=== PATIENT | female | born 1995 ===

== ENCOUNTER 2023-01-21 14:27 | Emergency (ER) | payer MEDICARE, MEDICAID, SELFPAY ==
[2023-01-21 14:31] VITALS: BP 106/80; PULSE 114; RESP 18; TEMP 36.8; O2SAT 97
--- NOTE | 2023-01-21 15:30 | DI.RAD_ITS ---
Exam(s) XR CHEST 2V PA LATERAL EXAM: XR CHEST 2V PA LATERAL CLINICAL HISTORY: cough 1-2 weeks, rales L>R TECHNIQUE: 2D digital imaging was performed of the chest. Two images were obtained. PA and lateral views were obtained. COMPARISON: No exams were available for comparison FINDINGS: MEDIASTINUM: Normal. HEART: Normal. PULMONARY VASCULATURE: Normal. LUNGS: Clear. PLEURAL SPACE: No pleural effusion or pneumothorax. BONE:Within normal limits for the patient's age. OTHER FINDINGS:Normal. IMPRESSION: No acute pulmonary findings. DATA REPOSITORY: RADIATION DOSE DELIVERED:
--- NOTE | 2023-01-21 15:34 | ED.GENADUL_ITS ---
Discharge Plan Disposition Patient Disposition: Against Medical Advice Discharge Details Clinical Impression: Cough, Tachycardia Primary Care Provider: Unknown,Unknown ED Provider: Eben Lin Home Meds and New Rx's Prescriptions: New benzonatate 100 mg capsule 100 mg PO BID PRN (Reason: cough) Qty: 14 0RF Discharge Instructions Instructions: Against Medical Advice (ED) Additional Instructions: You are leaving AGAINST MEDICAL ADVICE and may have lifestyle modifying or life- threatening disease that would go undiagnosed and untreated. It was recommended that you stay in the emergency dept for further observation and treatment and you have refused this. You understand you may return to the ER at any point for further work-up and treatment as recommended. Please follow-up with your doctor. Please return to the ER at any time for worsening or new concerning symptoms or if you wish to pursue work-up and treatment as recommended. Medical Decision Making 1536?- 27-year-old here with cough, sore throat, myalgias, headache over the past 1 to 2 weeks. Patient is saturating well in no respiratory distress. They are tachycardic and appears dehydrated. Suspect viral illness. Consider pneumonia. Plan to obtain chest x-ray. Consider COVID and influenza and will obtain stat testing. Plan to give IV fluid bolus. I will check screening labs including CBC and complete metabolic panel. -- Labs reviewed and no leukocytosis. No significant electrolyte abnormalities. Chest x-ray was reviewed and interpreted by radiology: No acute findings. Patient reassessed and tachycardia persisting. Plan for additional IV fluid bolus and continued monitoring. Plan discussed with patient and they are refusing and would like to leave at this time AGAINST MEDICAL ADVICE. I had a discussion with the patient about my diagnostic/treatment plan. Patient declines plan and wishes to leave against medical advise. I reiterated my concerns to the patient and explained the risks of leaving prior to completion of workup and treatment. I specifically emphasized the possibility of life- threatening or lifestyle modifying disease that would not be appropriately treated if they leave. Patient verbalized understanding of my concerns and the potential for life threatening or lifestyle modifying disease. Patient has capacity to make informed decision. I again explained my concerns and urged the patient to stay for treatment as outlined. Patient continued to refuse. I then discussed potential less ideal alternatives to diagnostic/treatment plan as outlines and patient refused. I recommended that the patient follow-up with primary care physician PEDRITO or return to the Emergency Department at any time for further treatment. HPI General Mode of arrival: ambulatory . Date/Time Provider Initiated Documentation: 01/21/23 15:19 . Limitations to Documentation: no limitations . Information obtained by: patient . HPI Narrative: 27-year-old smoker presents with chief complaint of respiratory illness. Patient notes cough for the past 1 to 2 weeks. Patient has associated sore throat, myalgias and headache. Patient denies fever but notes they typically are not able to tell when they have a fever. No associated abdominal pain. No rash. Patient notes negative home COVID test. Related Data Home Medications Medication Instructions Recorded Confirmed benzonatate 100 mg capsule 100 mg PO BID PRN cough #14 caps 01/21/23 Previous Rx's Medication Instructions Recorded benzonatate 100 mg capsule 100 mg PO BID PRN cough #14 caps 01/21/23 Allergies Allergy/AdvReac Type Severity Reaction Status Date / Time acetaminophen [From Tylenol] AdvReac Unverified 01/21/23 14:37 ibuprofen AdvReac Unverified 01/21/23 14:37 quetiapine [From Seroquel] AdvReac Unverified 01/21/23 14:37 General Stated Complaint: GenMedical LEI: 4 Review of Systems All systems reviewed & are unremarkable except as noted in HPI and below Constitutional Constitutional: Reports as per HPI and Reports body ache(s) Respiratory Respiratory: Reports cough and Denies hemoptysis PFSH All Active Problems (Updated 01/21/23 @ 17:27 by Eben Lin MD) Cough (Acute) Tachycardia (Acute) Social History Smoking risk assessment performed?: No Exam Const General: cooperative and no acute distress HENIN Mouth: moist mucous membranes Throat: tonsils normal, uvula midline, postnasal drainage, no uvular edema and other (Mild erythema) Eyes Conjunctivae: normal conjunctivae Sclera: normal sclerae Neck Neck: trachea midline and supple Resp Effort & Inspection: normal respiratory effort and able to speak in complete sentences Auscultation: rales bilaterally, no rhonchi and no wheezes Cardio Rate: tachycardic Rhythm: regular rhythm GI Palpation: soft, not firm, no guarding, no masses, not rigid and nontender Skin General skin exam: no rashes or lesions noted Neuro General: patient alert, patient awake, patient oriented x3 and tone normal Extrem General: no edema Psych Appearance: grossly normal Mental Status: mental status grossly normal Speech and Movement: speech and movement normal Affect: blunted Course Vital Signs Vital signs: Vital Signs Temperature 36.8 C 01/21/23 14:31 Pulse 114 H 01/21/23 14:31 Respiratory Rate 18 01/21/23 14:31 Blood Pressure 106/80 01/21/23 14:31 Pulse Oximetry 97 01/21/23 14:31 Temperature 36.8 C 01/21/23 14:31 Pulse 114 H 01/21/23 14:31 Respiratory Rate 18 01/21/23 14:31 Blood Pressure 106/80 01/21/23 14:31 Blood Pressure Position Sitting 01/21/23 14:31 Pulse Oximetry 97 01/21/23 14:31 Oxygen Delivery Method Room Air 01/21/23 14:31 Oxygen Flow Rate 0 01/21/23 14:31 Pain Level 7 01/21/23 14:31 Comment chronic pain 01/21/23 14:31 Lab/Test Results Lab/Test Results: 01/21/23 15:10 Tonsil - Right Group A Streptococcus Culture - Pending
[2023-01-21] MEDS: Lactated Ringers 1,000 ML 1000 ML IV (15:59)
[2023-01-21 16:04] LABS: Abs Immature Grans 0.41 10^3/uL (0.0-0.06); Absolute Basophil Count 0.14 10^3/uL (0.0-0.2); Absolute Eosinophil Count 0.87 10^3/uL (0.0-0.7); Absolute Lymphocyte Count 3.05 10^3/uL (1.2-3.4); Absolute Monocyte Count 0.65 10^3/uL (0.1-0.8); Absolute Neutrophil Count 5.21 10^3/uL (1.2-6.7); Basophils % 1.4; Eosinophils % 8.4; HCT 38.1 % (36.0-46.0); HGB 13.2 g/dL (11.2-15.7); Lymphocytes % 29.5; MCH 33.1 pg (27.0-33.0); MCHC 34.6 % (32.0-36.0); MCV 96 fL (80-95); MPV 8.5 fL (8.0-11.0); Monocytes % 6.3; Neutrophils % 50.4; Platelet Count 363 10^3/uL (130-400); RBC 3.99 10^6/uL (3.93-5.22); RDW 13.1 % (11.7-14.6); RDW-SD 46.2 fL; WBC 10.33 10^3/uL (4.4-10.8)
[2023-01-21 16:26] LABS: COVID-19 PCR Negative (Negative); Influenza A PCR Negative (Negative); Influenza B PCR Negative (Negative); RSV PCR Negative (Negative)
[2023-01-21 16:28] LABS: ALT 14 U/L (14-59); AST 8 U/L (15-37); Albumin 3.6 g/dL (3.4-5.0); Alkaline Phosphatase 97 U/L (46-116); Anion Gap 9.9 mmol/L (3-11); BUN 8 mg/dL (7-18); Bilirubin, Total 0.3 mg/dL (0.2-1.0); CO2 23.1 mmol/L (21.0-32.0); CREATININE 0.9 mg/dL (0.55-1.02); Calcium 8.7 mg/dL (8.5-10.1); Chloride 110 mmol/L (98-107); Estimated GFR 88.75 (mL/min/1.73m2); Glucose 149 mg/dL (74-106); Potassium 4.1 mmol/L (3.5-5.1); Sodium 143 mmol/L (136-145); Total Protein 7.6 g/dL (6.4-8.2)
[2023-01-21 16:31] LABS: Source Nasopharynx
[2023-01-21 17:15] VITALS: BP 122/77; PULSE 121; RESP 18; TEMP 37.2; O2SAT 96
--- NOTE | 2023-01-21 17:15 | DI.VRAD_ITS ---
PROCEDURE INFORMATION: Exam: XR Chest Exam date and time: 01/21/2023 4:56 PM Age: 27 years old Clinical indication: Cough and other: Cough1-2 weeks TECHNIQUE: Imaging protocol: Radiologic exam of the chest. Views: 2 views. COMPARISON: No relevant prior studies available. FINDINGS: Lungs: No consolidation. Pleural spaces: No pleural effusion. No pneumothorax. Heart/Mediastinum: No cardiomegaly. Bones/joints: Unremarkable. IMPRESSION: No acute findings. Dictated and Authenticated by: Lin Raines MD. Ordering:GRACE Treadwell MD
[2023-01-21 17:36] VITALS: RESP 20
== END 2023-01-21 20:45 | disposition left against medical advice (07) ==
PROVIDERS: Emergency Provider Student in an Organized Health Care Education/Training Program
DX: R05.9 Cough, unspecified (principal); R00.0 Tachycardia, unspecified; R51.9 Headache, unspecified; M79.10 Myalgia, unspecified site; Z20.822 Contact with and (suspected) exposure to COVID-19
CPT/HCPCS: 36415; 80053; 87637; 87880; 96360; 99284; 71046; 85025; 87081

== ENCOUNTER 2023-04-17 20:10 | Emergency (ER) | payer MEDICARE, MEDICAID, SELFPAY ==
[2023-04-17 20:04] VITALS: BP 112/70; PULSE 90; RESP 16; TEMP 36.8; O2SAT 98
--- NOTE | 2023-04-17 20:30 | DI.CT_ITS ---
Exam(s) CT THORACIC LUMBAR SPINE WO EXAM: CT THORACIC LUMBAR SPINE WO CLINICAL HISTORY: Back Pain. TECHNIQUE: Imaging Protocol: Axial computed tomography images with coronal and sagittal reformatted images were created and reviewed. CONTRAST MATERIAL: Intravenous: Omnipaque 350 Contrast volume:structured data in ml Contrast route:I V - Oral: yes / no COMPARISON: No exams were available for comparison FINDINGS: THORACIC SPINAL COLUMN: No evidence of fracture or listhesis. No facet malalignment. No acute compr omise of the spinal canal. LUMBOSACRAL SPINAL COLUMN: No evidence of fracture or listhesis nor disc space narrowing. No facet a rthropathy. No facet malalignment. No osseous lesions. No acute compromise of the spinal canal. IMPRESSION: No significant osseous findings in the thoracic and lumbosacral spinal columns. RADIATION DOSE DELIVERED: 1,629.69mGy.cm Total DLP DATA REPOSITORY: All CT scans at this facility are submitted to the National Radiology Data Registry (NRDR) Dose Index Registry (DIR) with the [employer] (A[employer]). RADIATION OPTIMIZATION: All CT scans at this facility use at least one of these dose optimization te chniques: automated exposure control; mA and/or kV adjustment per patient size (includes targeted exa ms where dose is matched to clinical indication); or iterative reconstruction.
--- NOTE | 2023-04-17 20:37 | ED.GENADUL_ITS ---
Discharge Plan Disposition Patient Disposition: Home Condition: Stable Discharge Details Clinical Impression: Back pain with left-sided sciatica ED Provider: Leslee Arora Home Meds and New Rx's Prescriptions: Continued benzonatate 100 mg capsule 100 mg PO BID PRN (Reason: cough) Qty: 14 0RF cetirizine 10 mg Tablet 10 mg PO DAILY alprazolam [Xanax] 0.5 mg Tablet 0.5 mg PO QID escitalopram oxalate 20 mg Tablet 20 mg PO DAILY olanzapine 2.5 mg Tablet 2.5 mg PO DAILY trazodone 150 mg Tablet 150 mg PO .QHS prazosin 2 mg Capsule 6 mg PO .QHS duloxetine 20 mg Capsule,Delayed Release(Dr/Ec) 20 mg PO DAILY Vyvanse 30 mg Capsule 30 mg PO DAILY docusate sodium [Stool Softener] 100 mg Capsule 100 mg PO BID pramipexole 0.25 mg Tablet 0.25 mg PO QHS diclofenac sodium 75 mg Tablet,Delayed Release (Dr/Ec) 75 mg PO BID lithium carbonate 300 mg Tablet 300 mg PO BID Discharge Instructions Instructions: Sciatica (ED), Lower Back Exercises (ED) Additional Instructions: CT is within normal limits. You may use lidocaine patches which you can obtain [id number] if needed. You did refuse the stronger pain medication tramadol. You may also apply topical diclofenac sodium or take diclofenac as this is on your medication list. Follow up with primary care provider in 3-5 days. Return to ED sooner if any worsening loss of bowel or bladder control, or concerns. Increase oral fluids. Stand Alone Forms: Physical Therapy Referral Discharge Data Discharge Date/Time-TO BE ENTERED AT DEPARTURE: 04/17/23 23:06 Medical Decision Making 27-year-old female who identifies as a male presents to the ER via EMS with a chief complaint of back pain which began suddenly prior to arrival while changing patient's close. Patient states that she was putting on her pants when she had a sudden onset of acute pain which radiates down into her thigh. Denies any recent trauma or injuries. Denies any loss of bowel or bladder control no saddle anesthesia. Reports cannot walk because it hurts. Leg raise positive. Does have sensation intact and gross motor intact, did not take any medications prior to arrival. CT T and L spine ordered, Lidocaine patch and flexeril ordered. Patient denies chance of . Informed by RN that patient is laying in bed on phone with legs crossed has no problems moving her legs. CT shows within normal limits T and L-spine no foraminal narrowing or spinal stenosis. However there is small questionable bilateral pleural effusions which could be causing patient's pain. I will discuss that or patient has any cough or shortness of breath which she did not mention to me earlier. Denies any cough or shortness of breath, lungs are clear to auscultation bilaterally. She is able to roll over onto her side without difficulty. Patient reports the pain is still moderate. She is unable to take Tylenol or ibuprofen but does have diclofenac on her list and trazodone. I will order tramadol for pain relief and instructed follow-up with PCP. We will road test her prior to discharge. Patient is refusing Tramadol. Patient discharged with physical therapy referral and instructions to follow-up with PCP. Patient was seen ambulatory without assistance upon discharge. This text was generated using [employer] dictation system, please disregard any oddities of phrase or misspellings. Imaging Data Radiologic Study: Imaging: CT Scan Radiologist's impression: IMPRESSION: 1. Thoracic spine is unremarkable. Minimal degenerative features of the disc spaces. No acute changes. No spinal stenosis or foraminal stenosis. 2. Paravertebral soft tissues are unremarkable. 3. Visible portions of the lung mack are clear. 4. Small bilateral pleural effusions. Recommend clinical correlation. This might be a source of thoracic pain if there is clinical pleurisy Soft tissues: Unremarkable. IMPRESSION: 1. No acute findings. 2. No migue degenerative features. No spinal stenosis or foraminal stenosis. 3. Transitional lumbar vertebra. There are 4 non rib-bearing lumbar vertebral bodies. Thank you for allowing us to participate in the care of your patient. Dictated and Authenticated by: Ronnie Hill MD HPI General Mode of arrival: EMS . Date/Time Provider Initiated Documentation: 04/17/23 20:34 . Limitations to Documentation: no limitations . Information obtained by: patient, RN notes reviewed and old records reviewed . HPI Narrative: 27-year-old female who identifies as a male presents to the ER via EMS with a chief complaint of back pain which began suddenly prior to arrival while changing patient's clothes. Patient states that she was putting on her pants when she had a sudden onset of acute pain which radiates down into her thigh. Denies any recent trauma or injuries. Denies any loss of bowel or bladder control no saddle anesthesia. Reports cannot walk because it hurts. Leg raise positive. Does have sensation intact and gross motor intact, did not take any medications prior to arrival. Related Data Home Medications Medication Instructions Recorded Confirmed benzonatate 100 mg capsule 100 mg PO BID PRN cough #14 caps 01/21/23 04/17/23 alprazolam 0.5 mg tablet (Xanax) 0.5 mg PO QID 04/17/23 04/17/23 cetirizine 10 mg tablet 10 mg PO DAILY 04/17/23 04/17/23 diclofenac sodium 75 mg 75 mg PO BID 04/17/23 04/17/23 tablet,delayed release docusate sodium 100 mg capsule 100 mg PO BID 04/17/23 04/17/23 (Stool Softener) duloxetine 20 mg capsule,delayed 20 mg PO DAILY 04/17/23 04/17/23 release escitalopram oxalate 20 mg tablet 20 mg PO DAILY 04/17/23 04/17/23 lisdexamfetamine 30 mg capsule 30 mg PO DAILY 04/17/23 04/17/23 (Vyvanse) lithium carbonate 300 mg tablet 300 mg PO BID 04/17/23 04/17/23 olanzapine 2.5 mg tablet 2.5 mg PO DAILY 04/17/23 04/17/23 pramipexole 0.25 mg tablet 0.25 mg PO QHS 04/17/23 04/17/23 prazosin 2 mg capsule 6 mg PO .QHS 04/17/23 04/17/23 trazodone 150 mg tablet 150 mg PO .QHS 04/17/23 04/17/23 Previous Rx's Medication Instructions Recorded benzonatate 100 mg capsule 100 mg PO BID PRN cough #14 caps 01/21/23 Allergies Allergy/AdvReac Type Severity Reaction Status Date / Time acetaminophen [From Tylenol] AdvReac Unverified 04/17/23 20:08 ibuprofen AdvReac Unverified 04/17/23 20:08 quetiapine [From Seroquel] AdvReac Unverified 04/17/23 20:08 General Stated Complaint: Nk/Back Pain LEI: 3 Review of Systems All systems reviewed & are unremarkable except as noted in HPI and below Constitutional Constitutional: Reports weakness Cardiovascular Cardiovascular: Denies dyspnea Respiratory Respiratory: Denies cough and Denies dyspnea Gastrointestinal Gastrointestinal: Denies fecal incontinence Genitourinary Genitourinary: Denies urinary incontinence Musculoskeletal Musculoskeletal: Reports as per HPI, Reports back pain and Reports radiating pain into limb Neurologic Neurologic: Reports as per HPI and Reports weakness PFSH All Active Problems (Updated 04/17/23 @ 22:40 by Leslee Arora NP) Back pain with left-sided sciatica (Acute) Social History Smoking/Tobacco Use Status: Never Smoking risk assessment performed?: Yes Alcohol Intake: current Alcohol Intake frequency: holidays/special occasions only Drug use: Never Substance use type: does not use Do you feel safe at home: Yes Do you feel safe in your relationship?: Yes Exam Narrative Exam Narrative: Constitutional: Alert and oriented x3. Appears stated age. Normal body habitus. Head: Normocephalic, no trauma. Eyes: Pupils PERRL, Red reflex noted, EOM's intact. Eyelids symmetrical without lesions, discharge, or swelling. ENT: Bilateral TM's WNL, External ear normal to inspection, no mastoid TTP, swelling, or erythema, Nasal turbinates WNL, no nasal discharge. Normal dentition, Posterior pharynx WNL, no exudate. Chest: RRR, Normal S1, S2, distal pulses intact. Resp: Lungs clear to auscultation bilaterally, no wheezes, rales, or rhonchi. Abdomen: Soft, non-distended, Normoactive bowel sounds all 4 quads. Musculoskeletal: Normal gait, 5/5 strength to all four extremities. Skin: No suspicious rashes or lesions. Capillary refill less than 2 sec. Neurologic: Cranial nerves II-XII intact. Alert and oriented x 3. Motor: No deficits noted. Sensory: Intact bilaterally all 4 extremities. Reflexes: DTR's intact bilaterally.. Hematologic/Lymphatic: No ecchymosis, no lymphadenopathy. Course Vital Signs Vital signs: Vital Signs Temperature 36.8 C 04/17/23 20:04 Pulse 90 04/17/23 20:04 Respiratory Rate 16 04/17/23 20:04 Blood Pressure 112/70 04/17/23 20:04 Pulse Oximetry 98 04/17/23 20:04 Temperature 36.8 C 04/17/23 20:04 Temperature Source Oral 04/17/23 20:04 Pulse 90 04/17/23 20:04 Respiratory Rate 16 04/17/23 20:04 Respiratory Effort Normal 04/17/23 20:04 Blood Pressure 112/70 04/17/23 20:04 Pulse Oximetry 98 04/17/23 20:04 Oxygen Delivery Method Room Air 04/17/23 20:04 Oxygen Flow Rate 0 04/17/23 20:04 Pain Level 10 04/17/23 20:04
[2023-04-17] MEDS: Cyclobenzaprine 10 MG TAB PO (20:52)
[2023-04-17] MEDS: Lidocaine 5% Patch 1 PATCH TP (20:52)
--- NOTE | 2023-04-17 22:02 | DI.VRAD_ITS ---
PROCEDURE INFORMATION: Exam: CT Thoracic Spine Without Contrast Exam date and time: 04/17/2023 9:10 PM Age: 27 years old Clinical indication: Low back pain and other: Back pain; Pain in thoracic spine; Without myelpathy or radiculopathy TECHNIQUE: Imaging protocol: Computed tomography of the thoracic spine without contrast. Radiation optimization: All CT scans at this facility use at least one of these dose optimization techniques: automated exposure control; mA and/or kV adjustment per patient size (includes targeted exams where dose is matched to clinical indication); or iterative reconstruction. COMPARISON: CR XR CHEST 2V PA LATERAL 01/21/2023 4:56 PM FINDINGS: Bones/joints: No acute fracture. Normal alignment. No significant disc bulge or herniation. No severe spinal canal stenosis. No significant neural foraminal narrowing. A large portion of the cervical spine is also included in imaging and is unremarkable. Soft tissues: Unremarkable. Vasculature: Thoracic aorta is unremarkable. Lungs: Visible portion of the lungs are clear bilaterally. Pleural spaces: Small bilateral pleural effusions with simple appearance. Heart: Visible cardiac structures are unremarkable. IMPRESSION: 1. Thoracic spine is unremarkable. Minimal degenerative features of the disc spaces. No acute changes. No spinal stenosis or foraminal stenosis. 2. Paravertebral soft tissues are unremarkable. 3. Visible portions of the lung mack are clear. 4. Small bilateral pleural effusions. Recommend clinical correlation. This might be a source of thoracic pain if there is clinical pleurisy PROCEDURE INFORMATION: Exam: CT Lumbar Spine Without Contrast Exam date and time: 04/17/2023 9:10 PM Age: 27 years old Clinical indication: Low back pain and other: Back pain; Pain in thoracic spine; Without myelpathy or radiculopathy TECHNIQUE: Imaging protocol: Computed tomography of the lumbar spine without contrast. Radiation optimization: All CT scans at this facility use at least one of these dose optimization techniques: automated exposure control; mA and/or kV adjustment per patient size (includes targeted exams where dose is matched to clinical indication); or iterative reconstruction. COMPARISON: No relevant prior studies available. FINDINGS: Bones/joints: There is a transitional lumbar vertebra. There are 4 non rib-bearing lumbar vertebra. No fracture. No suspicious focal bone lesions. No malalignment. Soft tissues: Unremarkable. IMPRESSION: 1. No acute findings. 2. No migue degenerative features. No spinal stenosis or foraminal stenosis. 3. Transitional lumbar vertebra. There are 4 non rib-bearing lumbar vertebral bodies. Dictated and Authenticated by: Ronnie Hill MD. Ordering:MOI Camilo MD
--- NOTE | 2023-04-17 22:39 | NUR.NOTE ---
Nursing Note: Pt refused po meds, states it never works ED Provider made aware
[2023-04-17 23:04] VITALS: BP 126/73; PULSE 78; RESP 16; TEMP 36.3; O2SAT 99
== END 2023-04-17 23:06 | disposition home or self-care (01) ==
PROVIDERS: Emergency Provider Registered Nurse Emergency
DX: M54.9 Dorsalgia, unspecified (principal); M54.32 Sciatica, left side
CPT/HCPCS: 99283; 72128; 72131

== ENCOUNTER 2023-11-09 16:38 | Outpatient (REF) | payer MEDICARE, MEDICAID, SELFPAY | END 2023-11-09 16:39 | disposition home or self-care (01) | LOC: LBN 16:38 | PROVIDERS: PCP Nurse Practitioner Family; Visit Provider Nurse Practitioner Family | DX: N76.0 Acute vaginitis (principal) | CPT/HCPCS: 87480; 87510; 87660 ==

== ENCOUNTER 2023-12-01 15:23 | Outpatient (CLI) | payer MEDICARE, MEDICAID, SELFPAY ==
[2023-12-01 13:14] LABS: Lithium 0.8 mmol/l (0.6-1.2)
== END 2023-12-01 15:24 | disposition home or self-care (01) ==
LOC: LBO 15:23
PROVIDERS: PCP Nurse Practitioner Family; Visit Provider Nurse Practitioner Family
DX: F31.89 Other bipolar disorder (principal); Z51.81 Encounter for therapeutic drug level monitoring
CPT/HCPCS: 36415; 80178

== ENCOUNTER 2024-01-28 19:21 | Outpatient (REF) | payer MEDICARE, MEDICAID, SELFPAY | END 2024-01-28 19:22 | disposition home or self-care (01) | LOC: LBN 19:21 | PROVIDERS: PCP Nurse Practitioner Family; Visit Provider Physician Assistant Medical | DX: N89.8 Other specified noninflammatory disorders of vagina (principal) | CPT/HCPCS: 87480; 87510; 87660 ==

== ENCOUNTER 2024-02-23 14:23 | Outpatient (REF) | payer MEDICARE, MEDICAID, SELFPAY | END 2024-02-23 14:24 | disposition home or self-care (01) | LOC: LBN 14:23 | PROVIDERS: PCP Nurse Practitioner Family; Visit Provider Nurse Practitioner Family | DX: N89.8 Other specified noninflammatory disorders of vagina (principal) | CPT/HCPCS: 87480; 87510; 87660 ==

== ENCOUNTER 2024-04-25 03:00 | Outpatient (CLI) | payer MEDICARE, MEDICAID, SELFPAY ==
[2024-04-25 12:30] LABS: Abs Immature Grans 0.03 10^3/uL (0.0-0.06); Absolute Basophil Count 0.04 10^3/uL (0.0-0.2); Absolute Eosinophil Count 0.33 10^3/uL (0.0-0.7); Absolute Lymphocyte Count 1.49 10^3/uL (1.2-3.4); Absolute Monocyte Count 0.28 10^3/uL (0.1-0.8); Absolute Neutrophil Count 2.91 10^3/uL (1.2-6.7); Basophils % 0.8 %; Eosinophils % 6.5 %; HGB 13.3 g/dL (11.2-15.7); Immature Grans % 0.6 %; Lymphocytes % 29.3 %; MCH 34.3 pg (27.0-33.0); MCV 98 fL (80-95); MPV 9.3 fL (8.0-11.0); Monocytes % 5.5 %; Neutrophils % 57.3 %; Platelet Count 277 10^3/uL (130-400); RBC 3.88 10^6/uL (3.93-5.22); RDW 12.6 % (11.7-14.6); RDW-SD 45.2 fL; WBC 5.08 10^3/uL (4.4-10.8)
[2024-04-25 12:38] LABS: Lithium 0.5 mmol/L (0.6-1.2)
[2024-04-25 12:56] LABS: ALT 17 U/L (14-59); AST 11 U/L (15-37); Albumin 3.7 g/dL (3.4-5.0); Alkaline Phosphatase 66 U/L (46-116); Anion Gap 11.6 mmol/L (3-11); BUN 7 mg/dL (7-18); Bilirubin, Direct 0.1 mg/dL (0.0-0.2); Bilirubin, Total 0.34 mg/dL (0.2-1.0); CO2 20.4 mmol/L (21.0-32.0); CREATININE 0.9 mg/dL (0.55-1.02); Calcium 8.7 mg/dL (8.5-10.1); Chloride 109 mmol/L (98-107); Glucose 142 mg/dL (74-106); Potassium 3.5 mmol/L (3.5-5.1); Sodium 141 mmol/L (136-145); TSH 2.01 uIU/Ml (0.36-3.74); Total Protein 7.1 g/dL (6.4-8.2)
[2024-04-25 13:02] LABS: Hemoglobin A1C 4.6 % (<5.7)
[2024-04-25 13:07] LABS: Calculated LDL 61 mg/dL (<100); Cholesterol 105 mg/dL (<200); HDL Cholesterol 23 mg/dL (40-60); Triglyceride 105 mg/dL (<150)
== END 2024-04-25 03:01 | disposition home or self-care (01) ==
LOC: LOS 03:00
PROVIDERS: PCP Nurse Practitioner Family; Visit Provider Psychiatry & Neurology Child & Adolescent Psychiatry
DX: F41.9 Anxiety disorder, unspecified (principal); F33.0 Major depressive disorder, recurrent, mild; F84.9 Pervasive developmental disorder, unspecified
CPT/HCPCS: 36415; 80053; 80061; 80076; 80178; 83036; 84443; 85025

== ENCOUNTER 2024-06-20 14:58 | Emergency (ER) | payer MEDICARE, MEDICAID, SELFPAY ==
[2024-06-20 15:00] VITALS: BP 108/63; PULSE 102; RESP 16; TEMP 36.3; O2SAT 97
--- OUTSIDE RECORDS SUMMARY | 2024-06-20 15:10 | XMS_ITS | Continuity of Care Document ---
Author Organization [facility] Address [address] [place] [address] Encounter NCTY_ND Date(s): 04/24/23 - 04/24/23 [facility] [address] [place] [address] Discharge Disposition: Home or Self Care Attending Physician: Mary Potts Admitting Physician: Mary Potts Referring Physician: Mary Potts Results Laboratory List Name Date Automated Diff 04/24/23 CBC w/ Diff 04/24/23 Comprehensive Metabolic Panel 04/24/23 [place] Level 04/24/23 Thyroid Stimulating Hormone 04/24/23 Most recent to oldest [Reference Range]: 1 WBC [5.0-10.0 x10^3/mcL] 6.1 x10^3/mcL (04/24/23 11:13 AM) RBC [4.1-5.3 x10^6/mcL] 4.0 x10^6/mcL *LOW* (04/24/23 11:13 AM) Neutro Auto [40.0-75.0 %] 46.6 % (04/24/23 11:13 AM) Lymph Auto [20.0-50.0 %] 37.3 % (04/24/23 11:13 AM) [place] Auto [2.0-15.0 %] 6.7 % (04/24/23 11:13 AM) Basophil Auto [0.0-1.0 %] 1.0 % (04/24/23 11:13 AM) BUN [7-18 mg/dL] 6 mg/dL *LOW* (04/24/23 11:13 AM) Glucose Level [74-106 mg/dL] 89 mg/dL (04/24/23 11:13 AM) Potassium Level [3.5-5.1 mmol/L] 4.2 mmo l/L (04/24/23 11:13 AM) MCV [80.0-96.0 fL] 98.3 fL *HI* (04/24/2313 AM) AST [15-37 unit/L] 15 unit/L (04/24/23 1113 AM) ALT [14-59 unit/L] 34 unit/L (04/24/23 AM) MCHC [31.0-35.0 g/dL] 34.3 g/dL (04/24/23:13 AM) Sodium Level [136-145 mmol/L] 140 mmol/L (04/24/23 AM) Hct [37.0-47.0 %] 39.6 % (04/24/23 AM) Calcium Level [8.5-10.1 mg/dL] 8.9 mg/dL (04/24/23 AM) Albumin Level [3.4-5.0 g/dL] 3.9 g/dL (04/24/2313 AM) Protein Total [6.4-8.2 g/dL] 7.7 g/dL (04/24/23 AM) MCH [26.0-32.0 pg] 33.7 pg *HI* (04/24/2313 AM) Neutro Absolute 2.8 x10^3/mcL *NA* (04/24/23 AM) Bilirubin Total [0.2-1.0 mg/dL] 0.4 mg/d L (04/24/23 11:13 AM) Hgb [12.0-16.0 g/dL] 13.6 g/dL (04/24/23 11:13 AM) Alk Phos [46-146 unit/L] 93 unit/L (04/24/23 1113 AM) Platelets [130-450 x10^3/mcL] 291 x10^3/ mcL (04/24/23 11:13 AM) [place] Level [0.60-1.20 mmol/L] 0.70 mm ol/L (04/24/23 11 AM) CO2 [21-32 mmol/L] 23 mmol/L (04/24/23 11:13 AM) TSH [0.358-3.740 mcIntlUnit/mL] 1.183 mc IntlUnit/mL (04/24/23 11:13 AM) eGFR Non-AA [>=60] 88 (04/24/23 11:13 AM) eGFR AA [>=60] 88 (04/24/23 11:13 AM) Chloride Level [98-107 mmol/L] 109 mmol/ L *HI* (04/24/23 11:13 AM) RDW-CV [11.5-14.5 %] 13.2 % (04/24/23 11:13 AM) Imm Gran Auto [0.0-0.9 %] 1.0 % *HI* (04/24/23 11:13 AM) Creatinine Level [0.55-1.02 mg/dL] 0.91 mg/dL (04/24/23 11:13 AM) Eos, Auto [1.0-6.0 %] 7.4 % *HI* (04/24/23 11:13 AM) Social History Social History Type Response Sex Female
--- OUTSIDE RECORDS SUMMARY | 2024-06-20 15:11 | XMS_ITS | Patient Health Record ---
Author Organization [facility] Anayeli carnes Billing Info Address [address] [place] [address] Support Name Relationship Address Phone CRIS GARCÍA Emergency Contact [address] [place] [address] RELL CHONG Guarantor Unknown [phone] Reason For Referral No Information Social History Tobacco Use: Social History Observation Description Date Smoking Status WARNING: Information temporarily unavailable Tobacco Status: Question Answer Notes Patient is a never smoker Plan Of Treatment No Information Insurance Providers Payer Name Payer Address Payer Phone Subscriber Number Group Number Insured Name Patient Relationship to Insured Coverage Start Date Coverage End Date MEDICARE [place] [address] [facility] [place] [id number] [phone] [id number] RELL CHONG Self - patient is the insured 0 0 [facility] [employer] [address] [place], [place] [id number] [phone] [id number] RELL CHONG Self - patient is the insured 0
--- NOTE | 2024-06-20 16:03 | ED.GENADUL_ITS ---
Discharge Plan Disposition Patient Disposition: Home Discharge Details Clinical Impression: Contusion of face, Injury caused by dog bite Primary Care Provider: Mami Frost ED Provider: Jose Chicas Home Meds and New Rx's Prescriptions: No Action nystatin 100,000 unit/gram cream 1 applic topical BID Qty: 15 0RF Rx Instructions: Apply twice daily to corners of mouth until resolved and then can use as needed medroxyprogesterone 150 mg/mL syringe 150 mg IM [id number] Qty: 1 3RF docusate sodium [Colace] 100 mg capsule 100 mg PO BID Qty: 60 6RF probiotic PO promethazine 25 mg tablet 25 mg PO ONCE PRN pramipexole 0.25 mg tablet 0.25 mg PO QHS Qty: 30 0RF olanzapine 2.5 mg tablet 2.5 mg PO DAILY Qty: 30 0RF lithium carbonate 300 mg tablet 300 mg PO BID Qty: 60 0RF Vyvanse 30 mg capsule 30 mg PO DAILY MDD 30 mg Qty: 30 0RF duloxetine 20 mg capsule,delayed release(DR/EC) 20 mg PO DAILY Qty: 28 0RF escitalopram oxalate 20 mg tablet 20 mg PO DAILY Qty: 28 0RF perphenazine 4 mg tablet 4 mg PO TID Qty: 84 0RF prazosin 2 mg capsule 6 mg PO .QHS Qty: 84 0RF alprazolam [Xanax] 0.5 mg tablet 0.5 mg PO QID Qty: 112 0RF gabapentin 600 mg tablet 600 mg PO QID Qty: 112 1RF furosemide 20 mg tablet 20 mg PO DAILY Qty: 30 3RF trazodone 150 mg tablet 150 mg PO .QHS Qty: 30 3RF diclofenac sodium 75 mg tablet,delayed release (DR/EC) 75 mg PO BID Qty: 56 1RF lactase [Lactaid Fast Act] 9,000 unit tablet 9,000 unit PO ONCE PRN (Reason: lactose intolerance) Qty: 32 3RF Rx Instructions: administer with meals and/or snacks cyclobenzaprine 10 mg tablet See Rx Instructions .ROUTE .COMPLEX Qty: 84 0RF Dose Instruction: TAKE 1 TABLET BY MOUTH THREE TIMES A DAY Rx Instructions: TAKE 1 TABLET BY MOUTH THREE TIMES A DAY cetirizine 10 mg Tablet 10 mg PO DAILY Discharge Instructions Instructions: Black Eye ED Additional Instructions: * No need for antibiotics as there is no open wound. * You will likely have a black eye for several days as this usually takes a while to completely resolve * You can apply ice pack to the area to help with bruising and swelling * Your tetanus was updated today in the emergency HPI General Date/Time Provider Initiated Documentation: 06/20/24 15:11 . Limitations to Documentation: no limitations . Information obtained by: patient . HPI Narrative: 28-year-old trans f>m with past medical history including bipolar disorder ADHD presents for evaluation of an injury caused by a dog. She reports that she noted a dog being walked on a leash and asked the fare collector if she could pet the dog. She states that she pended the dog and then the dog jumped up and bit her in the face. She denies any bleeding. She does report bruising and some tenderness around her left eye. She denies any change in her vision. She does not know anything about the dog or its vaccination status. She was initially evaluated at urgent care and referred to the emergency department. Related Data Home Medications ?Medication ?Instructions ?Recorded ?Confirmed cetirizine 10 mg tablet 10 mg PO DAILY 04/17/23 05/25/24 probiotic PO 06/18/23 05/25/24 promethazine 25 mg tablet 25 mg PO ONCE PRN 06/18/23 05/25/24 nystatin 100,000 unit/gram topical 1 applic topical BID #15 grams 06/23/23 05/25/24 cream lisdexamfetamine 30 mg capsule 30 mg PO DAILY #30 caps 07/29/23 05/25/24 (Vyvanse) lithium carbonate 300 mg tablet 300 mg PO BID #60 tabs 07/29/23 05/25/24 olanzapine 2.5 mg tablet 2.5 mg PO DAILY #30 tabs 07/29/23 05/25/24 pramipexole 0.25 mg tablet 0.25 mg PO QHS #30 tabs 07/29/23 05/25/24 duloxetine 20 mg capsule,delayed 20 mg PO DAILY #28 caps 07/31/23 05/25/24 release escitalopram oxalate 20 mg tablet 20 mg PO DAILY #28 tabs 07/31/23 05/25/24 perphenazine 4 mg tablet 4 mg PO TID #84 tabs 07/31/23 05/25/24 prazosin 2 mg capsule 6 mg (3 x 2 mg) PO .QHS #84 caps 07/31/23 05/25/24 alprazolam 0.5 mg tablet (Xanax) 0.5 mg PO QID #112 tabs 08/03/23 05/25/24 gabapentin 600 mg tablet 600 mg PO QID #112 tabs 08/27/23 05/25/24 medroxyprogesterone 150 mg/mL 150 mg IM [id number] #1 mL 09/22/23 05/25/24 intramuscular syringe docusate sodium 100 mg capsule 100 mg PO BID #60 caps 02/23/24 05/25/24 (Colace) furosemide 20 mg tablet 20 mg PO DAILY #30 tabs 03/08/24 05/25/24 trazodone 150 mg tablet 150 mg PO .QHS #30 tabs 03/08/24 05/25/24 diclofenac sodium 75 mg 75 mg PO BID #56 tabs 06/06/24 tablet,delayed release lactase 9,000 unit tablet (Lactaid 9,000 unit PO ONCE PRN lactose 06/07/24 Fast Act) intolerance #32 tabs cyclobenzaprine 10 mg tablet See Rx Instructions .Route 06/20/24 .COMPLEX #84 tabs Previous Rx's ?Medication ?Instructions ?Recorded nystatin 100,000 unit/gram topical 1 applic topical BID #15 grams 06/23/23 cream lisdexamfetamine 30 mg capsule 30 mg PO DAILY #30 caps 07/29/23 (Vyvanse) lithium carbonate 300 mg tablet 300 mg PO BID #60 tabs 07/29/23 olanzapine 2.5 mg tablet 2.5 mg PO DAILY #30 tabs 07/29/23 pramipexole 0.25 mg tablet 0.25 mg PO QHS #30 tabs 07/29/23 duloxetine 20 mg capsule,delayed 20 mg PO DAILY #28 caps 07/31/23 release escitalopram oxalate 20 mg tablet 20 mg PO DAILY #28 tabs 07/31/23 perphenazine 4 mg tablet 4 mg PO TID #84 tabs 07/31/23 prazosin 2 mg capsule 6 mg (3 x 2 mg) PO .QHS #84 caps 07/31/23 alprazolam 0.5 mg tablet (Xanax) 0.5 mg PO QID #112 tabs 08/03/23 gabapentin 600 mg tablet 600 mg PO QID #112 tabs 08/27/23 medroxyprogesterone 150 mg/mL 150 mg IM [id number] #1 mL 09/22/23 intramuscular syringe docusate sodium 100 mg capsule 100 mg PO BID #60 caps 02/23/24 (Colace) furosemide 20 mg tablet 20 mg PO DAILY #30 tabs 03/08/24 trazodone 150 mg tablet 150 mg PO .QHS #30 tabs 03/08/24 diclofenac sodium 75 mg 75 mg PO BID #56 tabs 06/06/24 tablet,delayed release lactase 9,000 unit tablet (Lactaid 9,000 unit PO ONCE PRN lactose 06/07/24 Fast Act) intolerance #32 tabs cyclobenzaprine 10 mg tablet See Rx Instructions .Route 06/20/24 .COMPLEX #84 tabs Allergies Allergy/AdvReac Type Severity Reaction Status Date / Time ibuprofen AdvReac Severe GI Bleeding Unverified 06/20/24 15:04 aspirin AdvReac Intermediate Other (See Verified 06/20/24 15:04 Comment) naproxen (From Aleve) AdvReac Intermediate Other (See Verified 06/20/24 15:04 Comment) acetaminophen (From Tylenol) AdvReac Nausea Unverified 06/20/24 15:04 quetiapine (From Seroquel) AdvReac Nausea Unverified 06/20/24 15:04 General Stated Complaint: AnimalBite LEI: 4 Exam Narrative Exam Narrative: Review of Systems: All systems reviewed & are unremarkable except as noted in HPI and below Well-developed, no acute distress Bruising noted under the left eye, no open wounds, no facial instability, no significant tenderness PERRL, normal conjunctiva , no signs of entrapment Upper lip without any obvious injury, mucosa intact RRR Unlabored respiratory effort Course Vital Signs Vital signs: Vital Signs Temperature 36.3 C L 06/20/24 15:00 Pulse 102 H 06/20/24 15:00 Respiratory Rate 16 06/20/24 15:00 Blood Pressure 108/63 06/20/24 15:00 Pulse Oximetry 97 06/20/24 15:00 Temperature 36.3 C L 06/20/24 15:00 Temperature Source Temporal Artery Scan 06/20/24 15:00 Pulse 102 H 06/20/24 15:00 Respiratory Rate 16 06/20/24 15:00 Blood Pressure 108/63 06/20/24 15:00 Blood Pressure Position Sitting 06/20/24 15:00 Pulse Oximetry 97 06/20/24 15:00 Oxygen Delivery Method Room Air 06/20/24 15:00 Oxygen Flow Rate 0 06/20/24 15:00 Pain Level 6 06/20/24 15:00 Medical Decision Making Emergent evaluation of injury from dog, unclear why patient was referred from [facility] for management. There is no bite or wound needing rabies treatment or antibiotic treatment. She has bruising noted periorbitally on the left. And this is not significant enough in the physical exam does not concern me for an intracranial process or facial fracture. The patient was offered a tetanus shot since she was here and she would like 1. I recommended ice pack to the area to help with bruising and swelling. Recommend follow-up with primary care as needed. Quality:SDOH Health Related Social Needs: No Data to Display PFSH All Active Problems Injury caused by dog bite (Acute) Contusion of face (Acute) History of candidal vulvovaginitis (Acute) Contraception management (Acute) Anxiety (Chronic) Allergic rhinitis (Acute) ADHD (attention deficit hyperactivity disorder) (Acute) Bipolar disorder, unspecified (Acute) Insomnia (Acute) Depression (Chronic) Nightmares (Acute) Restless legs (Acute) Fatigue (Acute) Migraine (Chronic) [id number] transgender person (Acute) Family History Mother Breast cancer Depression Chronic mental illness Social History Smoking/Tobacco Use Status: Current-Occasional Tobacco Type: cigarettes Quit status: considering quitting Second Hand Exposure: Yes Smoking risk assessment performed?: Yes Alcohol Intake: current Alcohol Intake frequency: other Alcohol type: wine Drug use: Current Sobriety Substance use type: former substance user, marijuana, methamphetamine and prescription drug Details: noted using Rx's that are NOT prescribed to him 2-4x/mo Caregiver/Support person: No Pets and animals: No Sexually active: No Current gender identity: trans [id number] How often do you talk on the phone with friends or family?: decline to answer How often do you get together with friends or relatives?: decline to answer How often do you attend mu-ism or episcopal services?: decline to answer Do you belong to any clubs or organized social groups?: decline to answer What type of physical activity do you participate in: walking Duration: 30-45 minutes/day Frequency: 3-4 times per week Special oscar needs: No Seatbelt use: never Helmet use: No Drive intox or ride w/intox food service driver: No Do you feel safe at home: Yes Do you feel safe in your relationship?: Yes
[2024-06-20 16:10] VITALS: BP 106/63; PULSE 104; RESP 14; O2SAT 98
== END 2024-06-20 16:20 | disposition home or self-care (01) ==
PROVIDERS: Emergency Provider Emergency Medicine; PCP Nurse Practitioner Family
DX: S00.12XA Contusion of left eyelid and periocular area, initial encounter (principal); Z23 Encounter for immunization; W54.0XXA Bitten by dog, initial encounter; Y93.89 Activity, other specified; Y92.89 Other specified places as the place of occurrence of the external cause; F17.210 Nicotine dependence, cigarettes, uncomplicated
CPT/HCPCS: 90471; 90715; 99283

== ENCOUNTER 2024-10-10 18:20 | Outpatient (REF) | payer MEDICARE, MEDICAID, SELFPAY | END 2024-10-10 18:21 | disposition home or self-care (01) | LOC: LBN 18:20 | PROVIDERS: PCP Nurse Practitioner Family; Visit Provider Nurse Practitioner Family | DX: B37.31 Acute candidiasis of vulva and vagina (principal) | CPT/HCPCS: 87480; 87510; 87660 ==

== ENCOUNTER 2024-11-17 21:16 | Outpatient (REF) | payer MEDICARE, MEDICAID, SELFPAY ==
[2024-11-19 13:54] LABS: Chlamydia Result Negative (Negative); GC Result Negative (Negative)
== END 2024-11-17 21:17 | disposition home or self-care (01) ==
LOC: LBN 21:16
PROVIDERS: PCP Nurse Practitioner Family; Visit Provider Nurse Practitioner Family
DX: Z20.2 Contact with and (suspected) exposure to infections with a predominantly sexual mode of transmission (principal); Z30.9 Encounter for contraceptive management, unspecified
CPT/HCPCS: 87491; 87591

== ENCOUNTER 2025-03-31 15:32 | Outpatient (REF) | payer MEDICARE, MEDICAID, SELFPAY | END 2025-03-31 15:33 | disposition home or self-care (01) | LOC: LBN 15:32 | PROVIDERS: PCP Nurse Practitioner Family; Visit Provider Nurse Practitioner Family | DX: N76.0 Acute vaginitis (principal) | CPT/HCPCS: 87480; 87510; 87660 ==

== ENCOUNTER 2025-07-20 04:23 | Outpatient (CLI) | payer MEDICARE, MEDICAID, SELFPAY ==
[2025-07-20 10:19] LABS: HCT 38.6 % (36.0-46.0); HGB 13.4 g/dL (11.2-15.7); MCH 32.6 pg (27.0-33.0); MCHC 34.7 % (32.0-36.0); MCV 94 fL (80-95); MPV 8.8 fL (8.0-11.0); Platelet Count 259 10^3/uL (130-400); RBC 4.11 10^6/uL (3.93-5.22); RDW 13.1 % (11.7-14.6); RDW-SD 45.0 fL; WBC 5.94 10^3/uL (4.4-10.8)
[2025-07-20 11:03] LABS: ALT 21 U/L (14-59); AST 9 U/L (15-37); Albumin 3.9 g/dL (3.4-5.0); Alkaline Phosphatase 74 U/L (46-116); Anion Gap 6.6 mmol/L (3-11); BUN 11 mg/dL (7-18); Bilirubin, Total 0.5 mg/dL (0.2-1.0); CO2 26.4 mmol/L (21.0-32.0); Calcium 9.1 mg/dL (8.5-10.1); Chloride 109 mmol/L (98-107); Estimated GFR 100.96 (mL/min/1.73m2); Glucose 108 mg/dL (74-106); Potassium 3.7 mmol/L (3.5-5.1); Sodium 142 mmol/L (136-145); Total Protein 7.5 g/dL (6.4-8.2)
[2025-07-20 11:10] LABS: Hemoglobin A1C 4.5 % (<5.7)
[2025-07-20 11:13] LABS: Lithium 0.7 mmol/L (0.6-1.2)
== END 2025-07-20 04:24 | disposition home or self-care (01) ==
LOC: LBO 04:23
PROVIDERS: PCP Nurse Practitioner Family; Visit Provider Nurse Practitioner Family
DX: Z51.81 Encounter for therapeutic drug level monitoring (principal); F31.9 Bipolar disorder, unspecified; Z30.9 Encounter for contraceptive management, unspecified; R73.01 Impaired fasting glucose
CPT/HCPCS: 36415; 80053; 85027; 80178; 83036

== ENCOUNTER 2025-09-06 18:08 | Outpatient (REF) | payer MEDICARE, MEDICAID, SELFPAY | END 2025-09-06 18:09 | disposition home or self-care (01) | LOC: LBN 18:08 | PROVIDERS: PCP Nurse Practitioner Family; Visit Provider Physician Assistant Medical | DX: N89.8 Other specified noninflammatory disorders of vagina (principal) | CPT/HCPCS: 87480; 87510; 87660 ==

== ENCOUNTER 2025-10-19 08:20 | Outpatient (CLI) | payer MEDICARE, MEDICAID, SELFPAY ==
[2025-10-19 16:24] LABS: Lithium 0.50 mmol/L (0.60-1.20)
== END 2025-10-19 08:21 | disposition home or self-care (01) ==
PROVIDERS: PCP Nurse Practitioner Family; Visit Provider Psychiatry & Neurology Psychiatry
DX: Z79.899 Other long term (current) drug therapy (principal)
CPT/HCPCS: 36415; 80178